=== PATIENT | female | born 1975 | race Caucasian/White ===

== ENCOUNTER 2016-10-04 15:37 | Emergency (ER) | payer MEDICAID ==
[~2016-10-04] VITALS: Ht 170.2 cm; Wt 99.9 kg
[~2016-10-04 15:37] MED LIST: CLON0.1T PO; DICL50TA PO; GABA800T PO; LEVO500T3 PO; REST0.05 EACH EYE; TRAM50TA PO
[2016-10-04 15:44] VITALS: BP 186/127; PULSE 84; RESP 18; TEMP 97.9; O2SAT 98
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
[2016-10-04] MEDS ORDERED: diphenhydrAMINE HCL 50 MG/ML VIAL IV PUSH ONE (16:15)
[2016-10-04] MEDS ORDERED: KETOROLAC TROMETHAMINE 30 MG/ML (IVP) VIAL IV PUSH ONE (16:15)
[2016-10-04] MEDS ORDERED: PROCHLORPERAZINE INJ 10 MG/2 ML VIAL IV PUSH ONE (16:15)
[2016-10-04] MEDS ORDERED: SODIUM CHLORID 0.9% 500 ML INJ 500 ML IV ONE (16:15)
[2016-10-04 16:56] VITALS: BP 206/107
[2016-10-04] MEDS ORDERED: cloNIDine HCL 0.1 MG TAB PO ONE (17:00)
[2016-10-04 17:46] VITALS: BP 180/100
[2016-10-04 17:52] VITALS: RESP 15
== END 2016-10-04 17:51 | disposition home or self-care (01) ==
LOC: PHED 15:37
DX: G43.909 Migraine, unspecified, not intractable, without status migrainosus (principal); I10 Essential (primary) hypertension
CPT/HCPCS: 96361; 96374; 96375; 99283; J0780; J1200; J1885; J7040